=== PATIENT | male | born 1985 | race Two or more races ===

== ENCOUNTER 2018-06-06 15:07 | Emergency (ER) | payer SELFPAY ==
[~2018-06-06] VITALS: Ht 175.3 cm; Wt 76.0 kg
[~2018-06-06 15:07] MED LIST: ETOMIDATE 2MG/ML 10ML VIAL IV ONE; SUCCINYLCHOLINE CHLORIDE 200MG/10ML IV ONE
[2018-06-06] MEDS ORDERED: PROPOFOL 10MG/ML 100ML 100 ML IV STA (15:14)
[2018-06-06] MEDS ORDERED: FENTANYL CITRATE/PF 50MCG/ML 2ML VIAL IV ONE ×3 (15:15→17:15)
[2018-06-06] MEDS ORDERED: PROPOFOL 10MG/ML 100ML 100 ML IV ONE (15:22)
[2018-06-06 15:29] VITALS: BP 106/61
[2018-06-06] MEDS ORDERED: FENTANYL CITRATE/PF 50MCG/ML 2ML VIAL ONE ×2 (15:37→15:40)
== END 2018-06-06 15:50 | disposition short-term general hospital (02) ==
LOC: ER 15:22
DX: S11.91XA Laceration without foreign body of unspecified part of neck, initial encounter (principal); X58.XXXA Exposure to other specified factors, initial encounter; Y93.89 Activity, other specified; Y92.488 Other paved roadways as the place of occurrence of the external cause; Y99.8 Other external cause status
CPT/HCPCS: 31500; 51702; 71045; 96374; 99285; J0330; J2704; J3010; J3490; 94002